=== PATIENT | female | born 1965 | race Hispanic/Latino ===

== ENCOUNTER 2017-10-15 20:48 | Emergency (ER) | payer BC ==
[~2017-10-15] VITALS: Ht 152.4 cm; Wt 73.5 kg
--- OUTSIDE RECORDS SUMMARY | 2017-10-15 20:49 | XMS REPORT | Clinical Summary ---
Author Author [facility] Organization [facility] Address Unknown Phone Unavailable Care Team Providers Care Loader [employer] Name Role Phone Blayne Menendez MD PCP Allergies No Known Allergies Current Medications Prescription Sig. Disp. Refills Start End Date Status Date ferrous sulfate 325 (65 Take 325 mg by mouth Active FE) MG tablet daily with breakfast. lopinavir-ritonavir Take 2 tablets by mouth 2 120 tablet 5 08/20/19 02/17/20 Active (KALETRA) 200-50 mg per (two) times a day for 180 18 18 tablet days. raltegravir (ISENTRESS) Take 1 tablet (400 mg 60 tablet 08/20/19 Active 400 mg tablet total) by mouth 2 (two) 18 times a day. tenofovir DF (VIREAD) 300 Take 1 tablet (300 mg 30 tablet 08/20/19 Active mg tablet total) by mouth daily. 18 raltegravir (ISENTRESS) Take 400 mg by mouth 2 12/12/19 Discontin 400 mg tablet (two) times a day. 17 ued lopinavir-ritonavir Take 2 tablets by mouth 2 12/12/19 Discontin (KALETRA) 200-50 mg per (two) times a day. 17 ued tablet tenofovir disoproxil Take 300 mg by mouth 12/12/19 Discontin fumarate (VIREAD) 300 mg daily. 17 ued tablet lopinavir-ritonavir Take 2 tablets by mouth 2 120 tablet 5 12/12/19 08/20/19 Discontin (KALETRA) 200-50 mg per (two) times a day for 180 17 18 ued tablet days. raltegravir (ISENTRESS) Take 1 tablet (400 mg 60 tablet 5 12/12/19 06/09/20 400 mg tablet total) by mouth 2 (two) 17 17 times a day for 180 days. tenofovir disoproxil Take 1 tablet (300 mg 30 tablet 5 12/12/19 Discontin fumarate (VIREAD) 300 mg total) by mouth daily. 17 18 ued tablet raltegravir (ISENTRESS) Take 400 mg by mouth 2 08/20/19 Discontin 400 mg tablet (two) times a day. 18 ued Active Problems Problem Noted Date HIV (human immunodeficiency virus infection) 12/11/2016 Encounters Date Type Specialty Care Team Description 08/20/2017 Office Visit Infectious Diseases Lv Harrison MD HIV ( human immunodeficiency virus infection) (Primary Dx) 08/07/2017 Orders Only Infectious Diseases Charleen Pereyra RN Asymptomatic human immunodeficiency virus (HIV) infection status (Primary Dx) 12/11/2016 Office Visit Infectious Diseases Lv Harrison MD HIV ( human immunodeficiency virus infection) (Primary Dx) 12/09/2016 Orders Only Infectious Diseases Milind Mendoza MD 11/25/2016 Orders Only Infectious Diseases Charleen Pereyra RN Asymptomatic human immunodeficiency virus (HIV) infection status (Primary Dx) after 10/14/2016 Immunizations Name Dates Previously Given Next Due Hepatitis B 01/14/2014, 10/14/2013, 09/17/2013 Influenza, Unspecified 04/03/2016, 03/29/2015, 05/18/2014, 09/17/2013, 06/08/2012, 05/29/2011, 05/09/2009 Pneumococcal Conjugate 04/03/2016 13-[facility] Pneumococcal 01/15/2011, 05/09/2009 Polysaccharide Tdap 08/18/2007 Social History Tobacco Use Types Packs/Day Years Used Date Never Smoker Alcohol Use Drinks/Week oz/Week Comments Yes occassionally Sex Assigned at Date Recorded Not on file Last Filed Vital Signs Vital Sign Reading Time Taken Blood Pressure 145/90 08/20/2017 11:01 AM [employer] Pulse 78 08/20/2017 11:01 AM [employer] Temperature 36.1 C (96.9 F) 12/11/2016 8:33 AM CDT Respiratory Rate - - Oxygen Saturation 98% 08/20/2017 11:01 AM [employer] Inhaled Oxygen - - Concentration Weight 68 kg (150 lb) 08/20/2017 11:01 AM [employer] Height 152.4 cm (5') 08/20/2017 11:01 AM [employer] Body Mass Index 29.29 08/20/2017 11:01 AM [employer] Plan of Treatment Date Type Specialty Care Team Description 10/16/2017 Office Visit Obstetrics and Gynecology Elva Russell MD [address] [facility] [address] [place] [address] Health Maintenance Due Date Last Done Comments PAP SMEAR 1986 COLONOSCOPY 10/19/2015 MAMMOGRAM 10/19/2015 INFLUENZA VACCINE 02/18/2017 04/03/2016, 04/03/2016, 03/29/2015, Additional history exists Results * HIV-1 RNA, quantitative RT, PCR (08/12/2017 8:41 AM) Only the most recent of 2 results within the time period is included. Component Value Ref Range HIV-1 RNA by PCR, Qn 20 copies/mL Comment: The reportable range for this assay is 20 to 10,000,000 copies HIV-1 RNA/mL. HIV-1 RNA viral load log 1.301 [id number]/mL Specimen Performing Laboratory Blood [facility] Narrative Performed at: [facility] [id number] Acoustic Engineer: Isidro Fall MD, Phone:[phone] * CD 4/8 subset (08/12/2017 8:41 AM) Only the most recent of 2 results within the time period is included. Component Value Ref Range CD4 absolute count 467 359 - 1,519 /uL CD4% 29.2 (L) 30.8 - 58.5 % CD8 absolute count 461 109 - 897 /uL CD8% 28.8 12.0 - 35.5 % CD4/CD8 ratio 1.01 0.92 - 3.72 WBC 4.6 3.4 - 10.8 x10E3/uL RBC 5.06 3.77 - 5.28 x10E6/uL HGB 14.7 11.1 - 15.9 g/dL HCT 43.2 34.0 - 46.6 % MCV 85 79 - 97 fL MCH 29.1 26.6 - 33.0 pg MCHC 34.0 31.5 - 35.7 g/dL RDW 13.7 12.3 - 15.4 % Platelet count 165 150 - 379 x10E3/uL Neutrophils 54 Not Estab. % Lymphocytes 35 Not Estab. % Monocytes 7 Not Estab. % Eosinophils 3 Not Estab. % Basophils 1 Not Estab. % Neutrophils, absolute 2.6 1.4 - 7.0 x10E3/uL Lymphocytes, absolute 1.6 0.7 - 3.1 x10E3/uL Monocytes, absolute 0.3 0.1 - 0.9 x10E3/uL Eosinophils, absolute 0.1 0.0 - 0.4 x10E3/uL Basophils, absolute 0.0 0.0 - 0.2 x10E3/uL Immature granulocytes 0 Not Estab. % Immature grans (abs) 0.0 0.0 - 0.1 x10E3/uL Specimen Performing Laboratory Blood [facility] Narrative Performed at:[id number] Acoustic Engineer: Jorge Doe MD, Phone:[phone] * Lipid panel (08/12/2017 8:41 AM) Only the most recent of 2 results within the time period is included. Component Value Ref Range Cholesterol 272 (H) 100 - 199 mg/dL Triglycerides 128 0 - 149 mg/dL HDL cholesterol 65 >39 mg/dL VLDL cholesterol dee dee 26 5 - 40 mg/dL LDL cholesterol 181 (H) 0 - 99 mg/dL calculated Non-HDL cholesterol 207 (H) 0 - 129 mg/dL Specimen Performing Laboratory Blood [facility] Narrative Performed at:[id number] Acoustic Engineer: Jorge Doe MD, Phone:[phone] * Comprehensive metabolic panel (08/12/2017 8:41 AM) Only the most recent of 2 results within the time period is included. Component Value Ref Range Glucose 94 65 - 99 mg/dL BUN, whole blood 16 6 - 24 mg/dL Creatinine 0.74 0.57 - 1.00 mg/dL EGFR Non-Afr. [place] 94 >59 mL/min/1.73 EGFR 108 >59 mL/min/1.73 BUN/creatinine ratio 22 9 - 23 Sodium 141 134 - 144 mmol/L Potassium 4.2 3.5 - 5.2 mmol/L Chloride 99 96 - 106 mmol/L CO2 23 18 - 29 mmol/L Calcium 9.4 8.7 - 10.2 mg/dL Protein 7.3 6.0 - 8.5 g/dL Albumin, S 4.6 3.5 - 5.5 g/dL Globulin, total 2.7 1.5 - 4.5 g/dL Albumin/globulin ratio 1.7 1.2 - 2.2 Total bilirubin 0.6 0.0 - 1.2 mg/dL Alkaline phosphatase 104 39 - 117 IU/L AST 23 0 - 40 IU/L ALT 36 (H) 0 - 32 IU/L Specimen Performing Laboratory Blood [facility] Narrative Performed at: - [facility] [id number] Acoustic Engineer: Jorge Doe MD, Phone:[phone] after 10/14/2016 Insurance Payer Benefit Subscriber ID Type Phone Address Plan / Group BCBS BCBS xxxxxxxxxxxx PPO CHOICE PPO/[place] [address]
[2017-10-15] MEDS ORDERED: KETOROLAC TROMETHAMINE 60 MG/2 ML VIAL IM ONE (21:15)
[2017-10-15] MEDS ORDERED: CEFTRIAXONE SOD 1 GM VIAL IV ONE (22:30)
[2017-10-15 23:07] VITALS: BP 125/76
== END 2017-10-15 23:00 | disposition short-term general hospital (02) ==
LOC: FSED 20:48
DX: R10.2 Pelvic and perineal pain (principal); R14.0 Abdominal distension (gaseous); N73.9 Female pelvic inflammatory disease, unspecified; N70.93 Salpingitis and oophoritis, unspecified
CPT/HCPCS: 76830; 80053; 81003; 85025; 96372; 99284; J0696; J1885